=== PATIENT | male | born 1975 | race Caucasian/White ===

== ENCOUNTER 2017-01-19 10:10 | Emergency (ER) | payer MEDICAID ==
[~2017-01-19] VITALS: Ht 182.9 cm; Wt 150.4 kg
[2017-01-19 13:01] VITALS: BP 165/88
== END 2017-01-19 13:01 | disposition home or self-care (01) ==
LOC: ED 10:10
DX: I10 Essential (primary) hypertension (principal); E66.01 Morbid (severe) obesity due to excess calories

== ENCOUNTER 2020-04-07 22:32 | Inpatient (IN) | payer OTHER, SELFPAY ==
[~2020-04-07] VITALS: Ht 180.3 cm; Wt 141.5 kg
[2020-04-07 22:32] VITALS: Ht 180.3 cm; Wt 141.5 kg
--- NOTE | 2020-04-07 22:32 | NUR ---
PT BROUGHT TO ED BY [facility] WITH C/O SOB. PER MEDICS, PT HAD A POSITIVE COVID TEST SUNDAY AND WAS EXPERIENCING FEVER AND SOB AT HOME. 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 PT REPORTS THAT HE HAS BEEN TAKING TYLENOL FOR FEVER AT HOME. PT RECEIVED A BREATHING TREATMENT IN ROUTE WITH AN INCREASE IN O2 SAT FROM 78-86%. UPON ARRIVAL, PT O2 SAT NOTED AT 59% ON THE MONITOR, PT IS EXPERIENCING SHALLOW LABORED BREATHING AT A RATE OF 61 BREATHS PER MINUTE. PT IS SOMNOLENT BUT WAKES TO VERBAL STIMULI AND ANSWERS QUESTIONS APPROPRIATELY. PT PLACED ON FULL CM, DR OLIVER AT BEDSIDE AND RT AT BEDSIDE AT THIS TIME.
--- NOTE | 2020-04-07 22:44 | NUR ---
PLACED ON NON-REBREATHER AT THIS TIME, O2 SAT 74%
--- NOTE | 2020-04-07 22:50 | NUR ---
PER DR OLIVER, D/T ABG RESULTS, PT WILL BE PLACED ON THE BIPAP. DR OLIVER SPOKE WITH RT AND HE WILL BE PUTTING PT ON BIPAP AT THIS TIME.
--- NOTE | 2020-04-07 22:51 | NUR ---
PT PLACED ON HIGH FLOW O2 AT THIS TIME BY QUAN LUCIA. PT CURRENT O2 SAT 86%
--- NOTE | 2020-04-07 22:51 | NUR ---
XRAY AT BEDSIDE AT THIS TIME.
--- NOTE | 2020-04-07 23:01 | NUR ---
PT SITTING UP AOX4, RESP RATE 55 AT THIS TIME ON HIGH FLOW O2. O2 SAT 89%. RESPS CONTINUE TO BE LABORED AND SHALLOW.
[2020-04-07 23:15] LABS: BASOPHIL % 0 % (0-2); CALCIUM 8.1 mg/dL (8.5-10.1); CARBON DIOXIDE 29.5 mmol/L (21-32); CHLORIDE SERUM 91 mmol/L (98-107); CREATININE SERUM 1.6 mg/dL (0.7-1.3); GFR1 50 mL/min; GLUCOSE SERUM 182 mg/dL (74-106); PLATELET COUNT 197 x10^3mcL (130-400); POTASSIUM SERUM 3.8 mmol/L (3.5-5.1); RED CELL DISTRIBUTION WIDTH 13.4 % (11.5-14.5); SODIUM SERUM 131 mmol/L (136-145)
[2020-04-07 23:26] LABS: ALKALINE PHOSPHATASE 59 U/L (46-116); ALT/SGPT 34 U/L (16-63); AST/SGOT 42 U/L (15-37); BILIRUBIN TOTAL 0.9 mg/dL (0.20-1.00); LACTIC DEHYDROGENASE (LDH) 581 U/L (100-190); TOTAL PROTEIN, SERUM 7.7 g/dL (6.4-8.2)
--- NOTE | 2020-04-07 23:35 | NUR ---
RT AT BEDSIDE FOR ABG.
[2020-04-07 23:39] LABS: ALBUMIN 2.8 g/dL (3.4-5.0)
--- NOTE | 2020-04-07 23:50 | NUR ---
PER DR OLIVER, PT TO BE PUT ON BIPAP D/T ABG RESULTS. RT QUAN AWARE.
--- NOTE | 2020-04-08 00:13 | NUR ---
PT NOTED TO BE EXTREMEMLY DIAPHORETIC AT THIS TIME. TEMP RECHECKED, AFEBRILE AT 98.6 ORALLY AT THIS TIME. PT AOX4, RESPS CONTINUE TO BE SHALLOW AT A RATE OF 35. PT REPORTS FEELING "A LITTLE BETTER".
--- NOTE | 2020-04-08 00:20 | NUR ---
SPOKE WITH RT GLASS, ON HIS WAY TO PLACE PT ON BIPAP.
--- NOTE | 2020-04-08 02:05 | NUR ---
PT RESTING IN A POSITION OF COMFORT WITH EYES CLOSED, PT TOLERATING BIPAP WELL WITH NO S/S OF DISTRESS NOTED.
--- NOTE | 2020-04-08 02:12 | NUR ---
REPEAT ABG RESULTS DISCUSSED WITH NARA MARSHALL TO CONTINUE WITH CURRENT TREATMENT. PT CURRENT O2 SAT 90% ON BIPAP.
--- NOTE | 2020-04-08 03:04 | NUR ---
DR ANTONY AT BEDSIDE TO ASSESS PT AND TALK ABOUT PLAN OF CARE FOR PT.
--- NOTE | 2020-04-08 03:10 | NUR ---
PT REPOSITIONED TO LAY ON L SIDE, PT REPORTS COMFORT AT THIS TIME.
--- NOTE | 2020-04-08 05:30 | NUR ---
PT MEDICATED PER EMAR, RESTING IN A POSITION OF COMFORT, WAKES EASILY TO VERBAL STIMULI. PT AOX4, RESP EVEN AND UNLABORED, NO ACUTE DISTRESS NOTED.
--- NOTE | 2020-04-08 06:46 | NUR ---
PT ASSISTED TO BEDSIDE COMMODE AT THIS TIME. PT REMAINS ON FULL CM AND BIPAP.
[2020-04-08 08:19] LABS: UA SPECIFIC GRAVITY >=1.030 (1.005-1.035); microscopic required? YES; urine erythrocyte NEGATIVE (NEGATIVE)
[2020-04-08 08:39] VITALS: BP 112/67
--- NOTE | 2020-04-08 11:30 | NUR ---
1000 PTT 64. NO CHANGE IN DRIP RATE PER PROTOCOL. REPEAT PTT ORDERED FOR 1600
[2020-04-08 11:38] VITALS: BP 106/60
--- NOTE | 2020-04-08 12:15 | NUR ---
PATIENT ADVISED THAT PARUL GUEVARA CAN RECEIVE PATIENT CONDITION UPDATES.
[2020-04-08 14:18] VITALS: BP 106/60
--- NOTE | 2020-04-08 16:01 | NUR ---
PATIENT PULLED RAC IV WHEN UP TO THE BEDSIDE COMMODE. NEW 22G STARTED TO R HAND. PATIENT TOLERATED WELL. WILL CONTINUE MONITOR.
[2020-04-08 16:07] VITALS: BP 137/85
--- NOTE | 2020-04-08 18:33 | NUR ---
PTT 36, PT BOLUS WITH 3700 UNITS, HEPARIN DRIP TITRATED TO 1900 U/HR AT THIS TIME PER PROTOCOL.
--- NOTE | 2020-04-08 19:08 | NUR ---
SBAR REPORT GIVEN TO OLIVIA GIANG. ALL UPDATES GIVEN.
[2020-04-08 19:15] VITALS: BP 136/86
--- NOTE | 2020-04-08 19:15 | NUR ---
RECEIVED CHANGE OF SHIFT REPORT FROM DOMINGUEZ BAKER. PT IS AOX4. PT ON BIPAP 100% FIO2, 16 RATE, 16 IPAP, 10 EPAP. PT ON HEPARIN DRIP AT 1900U/HR. PT SHOWING SINUS TACHY. SKIN INTACT. PT ON FULL LIQUID DIET. PERIPHERAL IV TO RIGHT HAND AND LAC. D5/0.9NS INFUSING AT 80ML/HR. PT VOIDS FREELY. PT ON BEDFAST. PT ABLE TO AMBULATE SELF.
[2020-04-08 23:01] VITALS: BP 133/74
--- NOTE | 2020-04-09 00:20 | NUR ---
RICO CATH INSERTED USING STERILE TECHNIQUE. 10ML OF WATER INSERTED. URINE FLUSH RETURN
--- NOTE | 2020-04-09 01:44 | NUR ---
PTT OF 39. PER PROTOCOL, INCREASE HEPARIN TO 2100U/HR AND GIVE 3700U BOLUS
--- NOTE | 2020-04-09 02:08 | NUR ---
CALLED LAB TO NOTIFY THEM THAT THEY DID NOT DRAW TYPE AND SCREEN DUE AT 2330 ON 04/08/20. LAB STATES THAT THEY WILL COME AND DRAW TYPE AND SCREEN
[2020-04-09 03:10] VITALS: BP 106/69
[2020-04-09 03:20] LABS: BASOPHIL % 0.1 % (0-2); PLATELET COUNT 198 x10^3mcL (130-400); RED CELL DISTRIBUTION WIDTH 13.8 % (11.5-14.5)
[2020-04-09 04:07] LABS: CALCIUM 8.2 mg/dL (8.5-10.1); CARBON DIOXIDE 29.9 mmol/L (21-32); CHLORIDE SERUM 97 mmol/L (98-107); CREATININE SERUM 1.3 mg/dL (0.7-1.3); GFR1 > 60 mL/min; GLUCOSE SERUM 271 mg/dL (74-106); MAGNESIUM 2.7 mg/dL (1.8-2.4); POTASSIUM SERUM 3.9 mmol/L (3.5-5.1); SODIUM SERUM 135 mmol/L (136-145); TRIGLYCERIDES 120 mg/dL (<150)
[2020-04-09 04:11] LABS: CHOLESTEROL 117 mg/dL (<200); CHOLESTEROL/HDL RATIO 4.9; HDL CHOLESTEROL 24 mg/dL (40-60)
--- NOTE | 2020-04-09 07:22 | NUR ---
GAVE CHANGE OF SHIFT TO IGNACIO BAKER AND GEORGE BAKER. QUESTIONS AND ENDORSED CARE
[2020-04-09 07:52] VITALS: BP 110/83
--- NOTE | 2020-04-09 08:52 | NUR ---
PTT WAS 43.7, GAVE PT 3,700 UNITS (0.74ML) OF HEP, TITRATED HEP DRIP UP 200 UNITS, HEP INFUSING AT 2,300 UNITS/HR AT THIS TIME. PTT ORDERED AT 1450 FOR 04/09/20.
--- NOTE | 2020-04-09 09:32 | NUR ---
MD NORTON AT PT BEDSIDE, NO NEW ORDERS, WILL CONT. TO MONITOR PT.
--- NOTE | 2020-04-09 09:44 | NUR ---
MD SIMS AT PT BEDSIDE AND PER MD SIMS ORDERED CHEST X-RAY AND BNP. UPDATED ON PT STATUS.
--- NOTE | 2020-04-09 10:55 | NUR ---
INCREASED FIO2 TO 100% DUE TO DESATURATION. PT PRONED AND TOLERATING WELL. WILL CONT.TO MONITOR
[2020-04-09 11:24] VITALS: BP 119/76
--- NOTE | 2020-04-09 11:55 | NUR ---
DR NORTON CALLED AND PAGED AT THIS TIME. AWAITING CALL BACK IN REGARDS TO POSSIBLE PICC LINE OR CENTRAL LINE
--- NOTE | 2020-04-09 13:30 | NUR ---
CONSENT FOR CONVALESCENT PLASMA WAS WITNESS BY RN OBTAINED FROM PATIENT, CONSENT FOR PICC LINE WAS OBTAINED BY MD NORTON, WAS WITNESSED BY RN, PT SIGNED FOR SELF
--- NOTE | 2020-04-09 14:02 | NUR ---
NOTIFIED DR NORTON THAT PER PICC LINE RN HEPARIN TO BE TURNED OFF UNTIL PICC LINE INSERTION COMPLETE. HEPARIN TURNED OFF AT THIS TIME BY PRIMARY RN. PER DR NORTON, OKAY TO TURN OFF AND REINTIATE ONCE PICC LINE IS COMPLETE.
[2020-04-09 16:01] VITALS: BP 118/80
--- NOTE | 2020-04-09 17:45 | NUR ---
PICC LINE OLIVIA ZHAO AT BEDSIDE
--- NOTE | 2020-04-09 18:36 | NUR ---
HEPRIN INFUSION RE-STARTED AT THIS TIME
--- NOTE | 2020-04-09 18:45 | NUR ---
XRAY PRESENT AT BEDSUDE
--- NOTE | 2020-04-09 18:50 | NUR ---
PTS PTT IS 27.6 AT THIS TIME, PT REBOLUSED WITH 7,400 UNITS, AND DRIP TITRATED 200 UNITS/HR TO A TOTAL OF 2,500 UNITS/HR. PHARMACY CALLED, PER PHARMACY, MUST CALL PHYSICIAN TO ASK FOR DOSAGE, DRUG GUARD PREVENTING TO TITRATE HIGHER THATN 2500. WILL ENDORSE
--- NOTE | 2020-04-09 19:09 | NUR ---
SHIFT REPORT GIVEN TO OLIVIA GIANG RN AWARE OF 2,500 UNITS/HR MAX OF HEP ON THE PUMP, RN ALSO AWARE THAT PLASMA NEEDS TO BE GIVEN, RN MADE AWARE THAT REMDESIVIR NEEDS TO BE GIVEN, AND ALL QUESTIONS ANSWERED.
[2020-04-09 19:20] VITALS: BP 141/73
--- NOTE | 2020-04-09 19:20 | NUR ---
RECEIVED CHANGE OF SHIFT REPORT FROM DELIA BAKER. PT IS AOX4. PT ON BIPAP, FIO2 100%, EPAP 16, IPAP 10, RATE 16. PT ON BEAN SNAPPER SHOWING NSR. SKIN INTACT. PT ON FULL LIQUID DIET. LAC PERIPHERAL IV AND AL PICC LINE INTACT AND PATENT, DRESSING CDI. D5/0.9NS INFUSINGG AT 80ML/HR. RICO INTACT AND DRAINING VIA GRAVITY. URINE IS YELLOW AND CELAR. PT BEDREST AND ABLE TO REPOSITION SELF
--- NOTE | 2020-04-09 19:24 | NUR ---
OKAY TO USE PICC LINE PER LESVIA HEATON
--- NOTE | 2020-04-09 20:08 | NUR ---
HEPARIN DRIP DISCONTINUED PER DR. ROOT. DR. REY ORDER NEW ORDER FOR LOVENOX.
--- NOTE | 2020-04-09 20:08 | NUR ---
SPOKE TO PHARMACY REGARDING LOVENOX ORDER. PHARMACY STATES THAT THEY WILL CALL THE DOCTOR TO CONFIRM THE DOSAGE.
--- NOTE | 2020-04-09 21:16 | NUR ---
SPOKE TO PHARMACY REGARDING REMDESAVIR ORDER. PHARMACY STATES THAT THEY ARE UNABLE TO CHANGE THE TIME TO 2100 FOR THE FIRST LOADING DOSE OF REMDESEVIR. PHARMACY REQUEST TO CALL DR. JOHNSON IF WE CAN START THE LOADING DOSE OF 200MG TOMORROW AT [address] JOHNSON. AWAITING DR. JOHNSON TO CALL BACK.
--- NOTE | 2020-04-09 21:26 | NUR ---
CALLED PHARMACY TO LET THEM KNOW THAT DR. JOHNSON OK TO CHANGE REMDESAVIR DOSE TO TOMORROW
--- NOTE | 2020-04-09 21:26 | NUR ---
DIANE BAKER SPOKE TO DR. JOHNSON. DR. JOHNSON OK TO START REMDESEVIR DOSE TOMORROW
--- NOTE | 2020-04-09 21:30 | NUR ---
SPOKE TO DR. REY WITH NEW ORDERS. NEW ORDERS OK TO TRANSFER TO TELE NOTED AND CARRIED OUT. WILL CONTINUE TO MONITOR.
--- NOTE | 2020-04-09 22:10 | NUR ---
CALLED BLOOD BANK TO ASK IF THE PLASMA IS READY. BLOOD BANK STATES THAT THEY HAVE NOT RECEIVED IT YET.
[2020-04-09 23:00] VITALS: BP 136/65
--- NOTE | 2020-04-09 23:16 | NUR ---
SPOKE TO SISTER JUDD AND UPDATED HER ON PT'S STATUS. WILL CONTINUE TO MONITOR.
--- NOTE | 2020-04-10 01:00 | NUR ---
DIANE BAKER CALLED LAB TO NOTIFY THEM THAT MIDNIGHT LAB DRAW WAS NOT DRAWN. LAB NOTED THEY WILL SEND SOMEONE
--- NOTE | 2020-04-10 04:56 | NUR ---
FOR THE SHIFT, PT HAD 2 SMALL LOOSE BOWEL MOVEMENT THAT IS BROWN. CLEANED THE PATIENT. CHUCKS AND GOWNS CHANGED
[2020-04-10 05:19] LABS: CALCIUM 7.3 mg/dL (8.5-10.1); CARBON DIOXIDE 32.4 mmol/L (21-32); CHLORIDE SERUM 103 mmol/L (98-107); CREATININE SERUM 0.9 mg/dL (0.7-1.3); GFR1 > 60 mL/min; POTASSIUM SERUM 3.5 mmol/L (3.5-5.1); SODIUM SERUM 140 mmol/L (136-145)
[2020-04-10 05:22] LABS: BASOPHIL % 0.1 % (0-2); PLATELET COUNT 184 x10^3mcL (130-400); RED CELL DISTRIBUTION WIDTH 13.6 % (11.5-14.5)
[2020-04-10 06:03] LABS: GLUCOSE SERUM 397 mg/dL (74-106)
[2020-04-10 06:43] LABS: BILIRUBIN DIRECT 0.16 mg/dL (0.0-0.2); BILIRUBIN TOTAL 0.5 mg/dL (0.20-1.00)
[2020-04-10 06:50] LABS: ALBUMIN 1.9 g/dL (3.4-5.0); TOTAL PROTEIN, SERUM 5.8 g/dL (6.4-8.2)
--- NOTE | 2020-04-10 07:24 | NUR ---
GAVE CHANGE OF SHIFT TO GEORGE AND IGNACIO BAKER. ENDORSED CARE
[2020-04-10 08:34] VITALS: BP 130/70
--- NOTE | 2020-04-10 11:00 | NUR ---
MD PINEDA AT BEDSIDE AT THIS TIME, UPDATED ON PT STATUS, PER MD PT WILL REQUIRE RISS, D/C D5 W/ NS, AND START NS AT 60 ML/HR.
[2020-04-10 12:00] VITALS: BP 148/87
--- NOTE | 2020-04-10 13:00 | NUR ---
PTS SISTER, JUDD, CALLED AT THIS TIME FOR A PT STATUS UPDATE, FAMILY IS AWARE OF PT STATUS AND THAT PT WILL BE TRANSFERING TO MD/SURG.
[2020-04-10 16:45] VITALS: BP 128/75
--- NOTE | 2020-04-10 19:33 | NUR ---
GAVE CHANGE OF SHIFT TO OLIVIA WESTON, ALL QUESTIONS ANSWERED, AND ENDORSED CARE.
--- NOTE | 2020-04-10 19:45 | NUR ---
RECEIVED REPORT FROM DAY SHIFT RN. PT AA&O X4. ABLE TO FOLLOW COMMANDS AND MAKE NEEDS KNOWN. ON BIPAP: FI02 100%, IPAP 16, RATE 16. NO C/O CHEST PAIN. IV SALINE LOCKED TO LAC. PICC LINE TO AL, PATENT AND INTACT. GENERALIZED WEAKNESS NOTED. NO C/O N/V/ABD PAIN. RICO CATHETER IN PLACE DRAINING LAURA URINE BY GRAVITY. INSTRUCTED PT TO CALL FOR ASSISTANCE. CALL LIGHT WITHIN REACH.
[2020-04-10 20:00] VITALS: BP 120/63
[2020-04-11] VITALS (7 sets, daily range): BP systolic 139–166; BP diastolic 63–89
--- NOTE | 2020-04-11 | NUR ---
PT RESTING WITH EYES CLOSED IN PRONE POSITION. AROUSABLE WITH VERBAL STIMULI. PT ON BIPAP: FI02 100%, IPAP 16, RATE 16. WILL CONTINUE TO MONITOR.
--- NOTE | 2020-04-11 06:30 | NUR ---
PT HAD LOOSE STOOL. CLEANED AND MADE PT COMFORTABLE.
[2020-04-11 06:50] LABS: BASOPHIL % 0.1 % (0-2); PLATELET COUNT 170 x10^3mcL (130-400)
[2020-04-11 06:57] LABS: CALCIUM 7.6 mg/dL (8.5-10.1); CARBON DIOXIDE 29.8 mmol/L (21-32); CHLORIDE SERUM 102 mmol/L (98-107); CREATININE SERUM 0.7 mg/dL (0.7-1.3); GFR1 > 60 mL/min; GLUCOSE SERUM 115 mg/dL (74-106); POTASSIUM SERUM 3.2 mmol/L (3.5-5.1); SODIUM SERUM 142 mmol/L (136-145)
[2020-04-11 07:05] LABS: BILIRUBIN DIRECT 0.24 mg/dL (0.0-0.2); BILIRUBIN TOTAL 0.8 mg/dL (0.20-1.00)
--- NOTE | 2020-04-11 07:05 | NUR ---
PT HAD WATERY BM. CLEANED PT AGAIN AND ENCOURAGED PRONE POSITION.
[2020-04-11 07:06] LABS: ALBUMIN 1.9 g/dL (3.4-5.0); TOTAL PROTEIN, SERUM 5.7 g/dL (6.4-8.2)
--- NOTE | 2020-04-11 07:10 | NUR ---
PATIET DESAT TO 69% AND RESPIRATORY RATE INCREASED TO 40. INCREASED IPAP TO 18 AND EPAP TO 12 AND ADVISED PATIENT TO LAY PRONE. SPO2 INCREASED TO 89. WILL CONTINUE TO MONITOR.
--- NOTE | 2020-04-11 07:36 | NUR ---
PT O2 SAT 60'S. RESP THERAPIST AT BEDSIDE. REPOSITIONED PT TO PRONE. O2 SAT IMPROVING HIGH 80'S.
--- NOTE | 2020-04-11 09:49 | NUR ---
MD PINEDA AT PT BEDSIDE AT THIS TIME, UPDATED ON PT STATUS, AND NO NEW ORDERS/INSTRUCTIONS AT THIS TIME.
--- NOTE | 2020-04-11 11:35 | NUR ---
Initial Nutrition Assessment: Dx: COVID PNA, acute hypoxic respiratory failure, GLENN, hyponatremia, hypochloremia PMHx: None PSHx: None Labs: (04/11/20) Na 142, K 3.2, Glu 115, BUN 15, Cr 0.7, A1c 6.6, H/H 12.6/37 Meds: Colace, Decadron, D5%, Humulin R, Lantus, Lovenox, Morphine sulfate, Lamont, Protonix, Rocephin, Tylenol, Zithromax, Zofran Diet: Full Liquid PO intake since admission: None recorded Ht: 180.34 cm / 71 inches / 5'11" Wt: 141.5 kg / 311 pounds BMI: 43.6 kg/m2, morbid obesity IBW: 172 pounds / 78 kg %IBW: 180% AdjBW: 206 pounds / 94 kg UBW: Unknown Age: 45 Food Allergies: NKFA Skin: Intact Kevin: 19 Edema: None noted GI: soft, round, active BS x 4, no N/V/abd pain Last BM: 04/09/20, 150 mL Pt admitted with dx: COVID PNA, acute hypoxic respiratory failure, GLENN, hyponatremia, hypochloremia. RD Note (04/11): Per H&P, Pt is a 45 y/o male with no significant pmhx. He presents with progressively worsening fever and sob. Pt reports a few days back started with a fever and chills, so went to his PCP, got COVID testing which returned positive on Sunday. Pt's symptoms progressively worsened which prompted him to be BIBA in ER, found to be hypoxic and placed on BIPAP, found to have leukocytosis, with elevated fibrinogens LDH, hyponatremia, chloremia along with GLENN. Pt continues on BiPAP, pending plasma infusion when available, started on remdesivir, on IVF hydration for GLENN. Started lantus and insulin sliding scale. Problem with: N/V/D/C: None Problems with: Chewing: None Swallowing: None Current appetite: Recent wt change: None Vitamin/Supplement use: None Special diet at home: Regular Physical activity: None Nutrition education given (specify specific nutrition education and handout given): N/A Food-drug interactions? N/A Education given? N/A Estimated Nutritional Needs Based on adj body weight of 94 kg. Energy: 3450-5812 kcal/d (25-30 kcal/kg for viral disease) Protein: 56-75 gm/d (0.6-0.8 gm/kg for GLENN) Fluid: 9028-8990 mL/d (1 mL/kcal) or per MD. Nutrition Diagnosis 1. Increased energy needs related to viral disease as evidenced by dx COVID-19. 2. Decreased protein need related to renal dysfunction 2/2 COVID-19 as evidenced by dx GLENN. Intervention/RDN Recommendation(s): 1. Continue on full liquid diet as tolerated. 2. If/when medically appropriate, recommend advancing diet to regular diet as tolerated. Monitor/Evaluate Goal: Intake via PO intakes to meet at least 75% of estimated needs with acceptable tolerance within 2-3 days. Monitor: PO intakes and/or nutrition support tolerance, Labs, GI function, Skin integrity, Weights. F/U in 2-3 days as high risk (04/13-)
--- NOTE | 2020-04-11 11:35 | NUR ---
Intervention/RDN Recommendation(s): 1. Continue on full liquid diet as tolerated. 2. If/when medically appropriate, recommend advancing diet to regular diet as tolerated.
--- NOTE | 2020-04-11 17:45 | NUR ---
MD PINEDA PAGEDaphne, PER WILL INFUSE 40 MEQ VIA IV FOR K+ OF 3.2, AND WILL CONT. TO MONITOR PT
--- NOTE | 2020-04-11 19:31 | NUR ---
GAVE CHANGE OF SHIFT TO OLIVIA POWERS, ALL QUESTIONS ANSWERED, AND CARE ENDORSED AT THIS TIME.
--- NOTE | 2020-04-11 19:50 | NUR ---
RECEIVED PT IN BED AWAKE, ALERT,ORIENTED X4. LUNG SOUNDS DIMINISHED. ON BIPAP: IPAP=18 RATE=16 NCS7=010%. PT IN PRONE POSITION . HE HAS NO C/O PAIN AT THIS TIME. NO C/O ABDL DISCOMFORT. W/ RICO CATH DRAINING LAURA URINE. W/ NS AT 60 CC/HR VIA PICC LINE TO RT ARM. CALL LIGHT W/IN REACH.
--- NOTE | 2020-04-11 22:21 | NUR ---
PATIENT CONTINUES TO DESAT. ADJUSTED MASK 3X TIMES TO PREVENT LEAK. PT AWAKE AND ALERT LAYING ON HIS SIDE.
--- NOTE | 2020-04-11 23:15 | NUR ---
PT ASLEEP AT THIS TIME. HE IS EASILY AROUSABLE AND ORIENTED. HE REMAINS ON BIPAP AND SATTING 82% AT THIS TIME. PT IS ON HIS LT SIDE AND APPEARS COMFORTABLE. HE HAS NO C/O PAIN. CALL LIGHT W/IN REACH. WILL CONTINUE TO MONITOR.
[2020-04-12] VITALS: BP 170/73
--- NOTE | 2020-04-12 00:24 | NUR ---
PT SLEEPING PRONE. ASKED PT IF HE'S OKAY AND HE ANSWERED "YES". O2 SAT SHOWING MID 60'S. R.T HAPPENED TO BE HERE AND STATED PULSE OX READING DOES NOT APPEAR ACCURATE. RT TO CHECK ON PT.
--- NOTE | 2020-04-12 00:41 | NUR ---
RT IN ROOM AND CHECKING ON PT.
--- NOTE | 2020-04-12 01:00 | NUR ---
PT HAD A LARGE WATERY BM. CLEANED PT AND WHILE HE IS BEING CLEANED HE DESAT TO 40'S TO 60'S. PT AWAKE AND TALKING AT THIS TIME. PLACED PT ON HI FLOW W/ NON- REBREATHERMASK BUT STILL DESAT. RT. CAME TO ASSESS PT.
--- NOTE | 2020-04-12 01:15 | NUR ---
SPOKE TO THE PATIENT AT THIS TIME. PT EDCATION WAS GIVEN IN REGARDING TO BEING INTUBATED. PT REFUSED INTUBATION AT THIS TIME. PT STATED THAT HE DO NOT WANT TO BE INTUBATED. DR. REY PAGED AT THIS TIME TO INFORM HIM ABOUT PT STATUS. DR. ISIS NORTON (PULMONLOGIST) CALLED BUT NO WORKING NUMBER AT THIS TIME.
--- NOTE | 2020-04-12 01:16 | NUR ---
RISK AND BENEFITS EXPLAINED REGARDING PT NEEDS TO BE INTUBATED AT THIS TIME.
--- NOTE | 2020-04-12 01:25 | NUR ---
ABG STAT DONE PH 7.47, PO2 21.7, PCO2 39, HC3 25. DR. REY MADE AWARE AND SAID TO INTUBATE PT AT THIS TIME. PT AND SISTER JUDD MADE AWARE OF RESULTS. WILL CONTINUE TO MONITOR.
--- NOTE | 2020-04-12 01:30 | NUR ---
SPOKE TO DR. REY AND INFORMED HIM THAT THE PATIENT DO NOT WANT TO BE INTUBATED AT THIS TIME. DR. REY SAID WELL THERE IS NOTHING WE CAN DO PLEASE TRY TO CONVINCE HIM.
--- NOTE | 2020-04-12 01:50 | NUR ---
SPOKE TO PT'S SISTER JUDD TO TRY TO CONVINCE PT ABOUT BEING INTUBATED 02 SAT 20'S AND WE DID AN ABG AND P02 21.7. PT WAS CONVINCED BY SISTER AND SAID ' IT WAS OK TO INTUBATE." PAGED AT THIS TIME TO MADE HIM AWARE THAT THE PT CHANGED HER MIND. ED DOCTOR MADE AWARE OF THE INTUBATION AT THIS TIME, AWAITING ED DOCTOR ARRIVAL.
--- NOTE | 2020-04-12 01:50 | NUR ---
PATIENT DESAT WHILE HE WAS BEING CLEANED BY NURSING. WHEN ENTERED ROOM SPO2 WAS IN THE 20'S. ADJUSTED MASK WHILE PATIENT WAS STILL AWAKE AND TALKING. INCREASED IPAP FROM 20 TO 24 AND EPAP FROM 12 TO 16. CHANGED PULSE OX TO EAR AND SEVERAL FINGERS. SPO2 INCREASED TO 40'S.
--- NOTE | 2020-04-12 01:51 | NUR ---
VIDEO CALL SISTER (JUDD) AT THIS TIME TO CONVINCE PT TO BE INTUBATED. SISTER WAS ABLE TO SEE PT'S SATURATION IN THE 20'S ON FI02 100%. JUDD ( SISTER) STARTED CRYING AND BEGGING HER BROTHER TO BE INTUBATED. PT WAS CONVINCED AT THIS TIME.
--- NOTE | 2020-04-12 01:55 | NUR ---
CHARGE NURSE SPOKE TO PT'S SISTER . PT'S SISTER TALKED TO THE PT AFTERWARDS.
--- NOTE | 2020-04-12 01:56 | NUR ---
PATIENT ON BIPAP. MYLA BAKER, DIANE ASKED TO REMOVE FROM BIPAP AND PLACE ON HIGH FLOW WITH NON REBREATHER MASK FOR COMFORT WHILE PT IS PRONE.
--- NOTE | 2020-04-12 02:40 | NUR ---
ETT IN PLACE SIZE 8.0 AND 26 AT THE LIP. PT ON AC MODE: MU=395 RATE=16 [id number]%+5.
--- NOTE | 2020-04-12 02:46 | NUR ---
PT INTUBATED CHEST X-RAY ORDERED FOR PLACEMENT VERIFICATIOIN.
--- NOTE | 2020-04-12 02:54 | NUR ---
PT WENT ASYSTOLE. CPR STARTED. ER DOCTOR CAME. CPR DONE FOR 11 MINS AND PT STILL ASYSTOLE. PT'S FAMILY ARRIVED AND AT THE WAITING ROOM AT THIS TIME.
--- NOTE | 2020-04-12 03:05 | NUR ---
PT WAS PRONOUNCED BY ER DOCTOR AT THIS TIME.
--- NOTE | 2020-04-12 03:06 | NUR ---
DR REY MADE AWARE THAT THE PT AT THIS TIME.
--- NOTE | 2020-04-12 03:25 | NUR ---
PT'S FAMILY AT BEDSIDE.
--- NOTE | 2020-04-12 04:50 | NUR ---
ACADEMIC SERVICES PROFESSIONAL PATIENCE AMAYA CALLED. INFORMATION GIVEN TO HIM. PT'S BODY RELEASED BY ACADEMIC SERVICES PROFESSIONAL.
--- NOTE | 2020-04-12 05:00 | NUR ---
PT CLEANED AND DOUBLE BAGGED.
--- NOTE | 2020-04-12 05:35 | NUR ---
PT TAKEN TO NIKKIE. ALL PAPARES TURNED IN.
== END 2020-04-12 06:09 | disposition expired | DRG 720 ==
LOC: ED 22:32 → IC 04-08 02:23
PROVIDERS: Emergency Medicine; Internal Medicine Pulmonary Disease; ADMIT Internal Medicine Pulmonary Disease; ATTEND Internal Medicine Pulmonary Disease
PROC: 5A09557 Assistance with Respiratory Ventilation, Greater than 96 Consecutive Hours, Continuous Positive Airway Pressure (ICD-10-PCS; 2020-04-08)
PROC: B548ZZA Ultrasonography of Superior Vena Cava, Guidance (ICD-10-PCS; 2020-04-09)
PROC: 5A12012 Performance of Cardiac Output, Single, Manual (ICD-10-PCS; principal; 2020-04-12)
PROC: 30233K1 Transfusion of Nonautologous Frozen Plasma into Peripheral Vein, Percutaneous Approach (ICD-10-PCS; 2020-04-12)
PROC: 02HV33Z Insertion of Infusion Device into Superior Vena Cava, Percutaneous Approach (ICD-10-PCS; 2020-04-12)
DX: A41.9 Sepsis, unspecified organism (principal); U07.1 COVID-19; J96.01 Acute respiratory failure with hypoxia; N17.9 Acute kidney failure, unspecified; I46.9 Cardiac arrest, cause unspecified; J12.89 Other viral pneumonia; E86.9 Volume depletion, unspecified; E87.1 Hypo-osmolality and hyponatremia; E87.8 Other disorders of electrolyte and fluid balance, not elsewhere classified; E66.01 Morbid (severe) obesity due to excess calories; E11.9 Type 2 diabetes mellitus without complications; Z68.36 Body mass index [BMI] 36.0-36.9, adult
CPT/HCPCS: 36600; 82962; 83880; 87804; C9113; G0378; J0456; J0696; J1100; J1644; J1815; J2543; J2704; J3480; J3490; J7030; J7042; J7050; J7060; Q0092; U0003-CS